=== PATIENT | male | born 1960 | race Caucasian/White ===

== ENCOUNTER 2022-02-02 05:43 | Observation (INO) ==
[~2022-02-02 05:43] MED LIST: Famotidine IV 10 MG/ML 2 ml VIAL (20 mg) ONE; ceFAZolin 2 GM in NS PREMIX 2 GM/100 ML BAG IVPB ONE
[2022-02-02] MEDS ORDERED: NS 0.45% 1000 ml BAG 1,000 ML IV SCH (06:00)
[2022-02-02] MEDS ORDERED: Buffered Lidocaine 1% SYRIN 1 ml INTRADERM ONE (06:00)
[2022-02-02] MEDS ORDERED: Famotidine IV 10 MG/ML 2 ml VIAL (20 mg) IV ONE (06:00)
[2022-02-02] MEDS ORDERED: Propofol 10 MG/ML 20 ML BTL ONE (06:55)
[2022-02-02] MEDS ORDERED: Ondansetron 4 mg VIAL 2 MG/ML 2 ml VIAL ONE (06:55)
[2022-02-02] MEDS ORDERED: Lidocaine 2% PF 5 ML VIAL ONE (06:55)
[2022-02-02] MEDS ORDERED: Dexamethasone IV 4 MG/ML VIAL 1 ml VIAL ONE (06:55)
[2022-02-02] MEDS ORDERED: fentaNYL 100 mcg/2 ml 50 MCG/ML VIAL ONE ×3 (06:56→09:49)
[2022-02-02] MEDS ORDERED: Midazolam 2 mg/2 ml VIAL 1 mg/ml 2 ml VIAL (2 mg) ONE (06:56)
[2022-02-02] MEDS ORDERED: Lidocaine 1% 50 ML MDV VIAL ONE (07:10)
[2022-02-02] MEDS ORDERED: HYDROmorphone 0.5 MG/0.5 ML SYRINGE ONE ×2 (08:52→08:53)
[2022-02-02] MEDS ORDERED: Acetaminophen IV 1 GM/100ML 100 ML IV ONE (09:12)
[2022-02-02] MEDS ORDERED: Phenylephrine 40 mcg/mL 10mL (400mcg) SYRINGE ONE (09:20)
[2022-02-02] MEDS ORDERED: Naloxone 0.4 mg VIAL 0.4 mg/ml 1 ml VIAL IV PRN (09:29)
[2022-02-02] MEDS ORDERED: fentaNYL 100 mcg/2 ml 50 MCG/ML VIAL IV PRN (09:29)
[2022-02-02] MEDS ORDERED: HYDROmorphone 1 MG/1 ML SYRINGE IV PRN (09:29)
[2022-02-02] MEDS ORDERED: HYDROmorphone 1 MG/1 ML SYRINGE ONE (09:49)
[2022-02-02] MEDS ORDERED: Morphine 2 MG/ML SYRINGE IV PRN (10:52)
[2022-02-02] MEDS ORDERED: Magnesium Hydroxide LIQ 30 ML UDC PO PRN (10:52)
[2022-02-02] MEDS ORDERED: Lactulose 30 ml UDC PO PRN (10:52)
[2022-02-02] MEDS ORDERED: Ondansetron 4 mg VIAL 2 MG/ML 2 ml VIAL IV PRN (10:52)
[2022-02-02] MEDS ORDERED: Ondansetron ODT 4 mg TAB 4 MG TAB PO PRN (10:52)
[2022-02-02] MEDS ORDERED: Lactated Ringers 1000 ml BAG 1,000 ML IV SCH (11:00)
[2022-02-02] MEDS ORDERED: DOXERCALCIFEROL IV SCH (11:15)
[2022-02-02] MEDS ORDERED: Morphine 2 MG/ML SYRINGE ONE (12:02)
[2022-02-02] MEDS ORDERED: oxyCODONE/Acetamin 5/325 mg TAB PO SCH (12:30)
[2022-02-02] MEDS ORDERED: Dextrose 50% Syringe 50 ml 25 GM/50 ML SYRINGE IV PUSH PRN (12:40)
[2022-02-02 15:29] VITALS: BP 140/63
[2022-02-02] MEDS ORDERED: Magnesium Hydroxide LIQ 30 ML UDC PO SCH (21:00)
[2022-02-03] MEDS ORDERED: CMC:LINACLOTIDE 72 MCG CAP (NF) PO SCH (09:00)
[2022-02-03] MEDS ORDERED: Vitamin THERAPEUTIC TAB PO SCH (09:00)
[2022-02-03] MEDS ORDERED: Cholecalciferol (VIT D3) 1,000 unit TAB PO SCH (09:00)
[2022-02-03] MEDS ORDERED: Aspirin EC 81 mg TAB.EC (enteric coated) PO SCH (09:00)
[2022-02-03] MEDS ORDERED: ceFAZolin 1 GM ADVAN 1 GM in NS 0.9% 50 ML 50 ML IVPB ONE (17:00)
== END 2022-02-02 15:25 | disposition left against medical advice (07) ==
LOC: AA 05:43 → INTOOBSV 05:43 → SSU 11:41
PROVIDERS: ADMIT Orthopaedic Surgery; ATTEND Orthopaedic Surgery